=== PATIENT | male | born 1950 | race Caucasian/White ===

== ENCOUNTER 2024-12-30 11:27 | Emergency (ER) | payer OTHER ==
[~2024-12-30] VITALS: Ht 175.2 cm; Wt 145.1 kg
[2024-12-30 11:42] VITALS: BP 124/48
[2024-12-30] MEDS ORDERED: DULOXETINE HCL30 MG PO (11:51)
[2024-12-30] MEDS ORDERED: ENTRESTO 24 MG1 EACH PO (11:51)
[2024-12-30] MEDS ORDERED: ALDACTONE25 MG PO (14:20)
[2024-12-30] MEDS ORDERED: TADALAFIL20 M1 PO (14:20)
[2024-12-30] MEDS ORDERED: OMEPRAZOLE40 MG PO (14:20)
[2024-12-30] MEDS ORDERED: LEVOTHYROXINE100 MC1 PO (14:21)
[2024-12-30] MEDS ORDERED: Acetaminophen/Hydrocodone 5 MG/325 MG TABLET PO ONE (14:50)
== END 2024-12-30 16:21 | disposition short-term general hospital (02) ==
LOC: ED 11:27 → EDHOLD 14:49 → ED 14:49
DX: I11.0 Hypertensive heart disease with heart failure (principal); I50.9 Heart failure, unspecified; K21.9 Gastro-esophageal reflux disease without esophagitis; S22.42XA Multiple fractures of ribs, left side, initial encounter for closed fracture; I48.91 Unspecified atrial fibrillation; E66.9 Obesity, unspecified; Z88.8 Allergy status to other drugs, medicaments and biological substances; Z79.899 Other long term (current) drug therapy; Z68.30 Body mass index [BMI] 30.0-30.9, adult; W18.09XA Striking against other object with subsequent fall, initial encounter; Y93.89 Activity, other specified; Y92.89 Other specified places as the place of occurrence of the external cause; Y99.8 Other external cause status